=== PATIENT | male | born 2000 | race Two or more races ===

== ENCOUNTER 2024-05-01 15:07 | Emergency (ER) | payer MEDICAID, SELFPAY ==
[2024-05-01 15:20] VITALS: BP 133/81; PULSE 103; RESP 16; TEMP 37.3; O2SAT 98; BMI 20.7
--- NOTE | 2024-05-01 15:23 | XR_ITS ---
Examination: Testicular sonography complete TECHNIQUE: Grayscale sonographic images testes, assessment arterial inflow venous outflow Doppler spectral analysis carful analysis Exam date and time: May 01 2024 cc 02 hours INDICATIONS: Onset left testicular pain beginning 2 days ago, history removal right testicle FINDINGS: Left testis 4.7 x 2.1 x 3.6 cm Epididymis 16 mm Arterial flow to the testicle. No testicular mass IMPRESSION: No left testicular mass or torsion
--- NOTE | 2024-05-01 15:26 | EDNOTE_ITS ---
ED Male Genitalurinary RME/HPI General Chief complaint: Urogenital-Male Stated complaint: TESTICULAR PAIN X 3 DAYS Time Seen by Provider: 05/01/24 15:10 Arrival date/time: 05/01/24 15:07 Mode of arrival: ambulatory Limitations: no limitations RME / HPI RME / HPI Narrative: 43-year-old male presents to the ED with complaint of left testicle pain onset 3 days ago, gradually worsening. 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 Denies any dysuria. Denies fever or chills. Denies trauma. Related Data Previous Rx's ?Medication ?Instructions ?Recorded ibuprofen 600 mg tablet 600 mg PO TID PRN pain #30 tabs 05/01/24 Allergies Allergy/AdvReac Type Severity Reaction Status Date / Time No Known Allergies Allergy Verified 05/01/24 15:11 Review of Systems Review of Systems Narrative Review of Systems: Review of systems negative except as outlined in the HPI. ED Exam Narrative Physical exam: Constitutional: no acute distress, age appropriate, non-toxic Eyes: PERRL, conjunctivae w/o pallor, EOMI HENT: normocephalic, atraumatic. Oral mucosa moist Respiratory Effort: no stridor, effort normal, no retractions Abdominal: soft; non-distended, non-tender : Penis appears normal. Left testicle mildly tender to palpation. No palpable mass. Right testicle absent. Normal cremasteric reflex on the left. Musculoskeletal: no deformities, no swelling, no LE edema Skin: warm, dry; No rash Neurology: alert, oriented X 4. Normal gait. Moves all extremities spo ntaneously. Psychology: cooperative, normal mood General Limitations: Present no limitations Course Quality Measures none Orders Category Date Time Status US scrotum Stat Exams 05/01/24 15:23 Completed Chlamydia/GC/TV - PCR Stat Lab 05/01/24 16:01 Received Urinalysis Stat Lab 05/01/24 16:01 Completed Ibuprofen Tab [Motrin Tab] Med 05/01/24 15:24 Discontinued 600 mg PO X1 ONE Vital Signs Vital signs: Vital Signs Temperature 99.1 F 05/01/24 15:20 Pulse Rate 103 H 05/01/24 15:20 Respiratory Rate 16 05/01/24 15:20 Blood Pressure 133/81 H 05/01/24 15:20 Pulse Oximetry (%) 98 01/07/25 15:20 Oxygen Delivery Method Room Air 05/01/24 15:20 Urogenital - Male MDM Narrative MDM Narrative:: 23-year-old male presents with complaint of testicle pain. Differential diagnoses considered include epididymitis, testicular torsion, hydrocele, varicocele, UTI, STI. Ultrasound shows no evidence of torsion, hydrocele, or epididymitis. UA reassuring against UTI. History not supportive of STI, does not require empiric treatment. Patient counseled to follow-up with primary care for further evaluation of testicle pain and possible referral to urology. Return to ED precautions given. Patient data External records reviewed:: [facility] previous records Clinical information provided by:: patient Social determinants that could affect healthcare access:: none Patient has the following chronic illnesses:: None How is presenting disease/condition affected by chronic disease/condition?: no chronic disease Evaluation data The following diagnostics were reviewed and interpreted by me:: lab results Lab and/or radiology exams considered but not ordered:: None Interpretation Summary: Examination: Testicular sonography complete TECHNIQUE: Grayscale sonographic images testes, assessment arterial inflow venous outflow Doppler spectral analysis carful analysis Exam date and time: May 01 2024 cc 02 hours INDICATIONS: Onset left testicular pain beginning 2 days ago, history removal right testicle FINDINGS: Left testis 4.7 x 2.1 x 3.6 cm Epididymis 16 mm Arterial flow to the testicle. No testicular mass IMPRESSION: No left testicular mass or torsion Medications / Prescriptions Medications or Prescriptions considered but not ordered:: N/A Medication administrations:: Medication Administration History Discontinued Medications Ibuprofen (Ibuprofen Tab 600 Mg Tablet) 600 mg PO X1 ONE Stop: 05/01/24 15:25 Last Admin: 05/01/24 15:48 Dose: 600 mg Documented By: DARIUS See above Consultations Consultation(s) initiated? (list below): No Diagnosis Urogenital Male Differential Diagnosis: urinary tract infection, urethritis, epididymitis and other (Testicle trauma, hydrocele, varicocele) Most likely diagnosis given after review of the tests above:: Testicle pain Admission Indicated Admission indicated?: not indicated Admission Request Was there a request for admission?: No Disposition Plan Disposition Plan: Discharge Discharge Attestation Discharge Attestation: The patient and all family members were given an opportunity to ask questions and understood the discharge instructions. Discharge instructions specifically effects, indications for sooner follow up or return to the emergency department, and the expected course of current diagnosis. Patient condition: Stable Discharge Plan Plan Patient Disposition: HOME (Self Care) Prescriptions/Referrals Prescriptions/Med Rec: New ibuprofen 600 mg tablet 600 mg PO TID PRN (Reason: pain) Qty: 30 0RF Referrals: No Primary/Family,Physician [Primary Care Provider] - In 1 week Problem List Clinical Impression: Pain in testicle Patient/Caregiver Discharge Instructions Education Materials: ED Testicular Pain, Unclear Cause Additional Instructions: Follow-up with your PCP for further evaluation of testicle pain. You may need a referral to urology. Take medication as prescribed. Return to the ED for new or worsening symptoms. Print Language: Romanian Stand Alone Forms: [facility] Award Info., Patient Portal Info Letter
[2024-05-01] MEDS: IBUPROFEN TAB 600 MG TABLET PO (15:48)
[2024-05-01 16:07] LABS: Collection Type, Urine Clean Catch; Squamous Epithelial Cell,Urine 0 /hpf (0-5)
[2024-05-01 16:12] LABS: Bilirubin,Urine Negative (Negative); Blood,Urine Negative (Negative); Clarity,Urine Clear (Clear/Hazy); Color,Urine Lt-Yellow (Lt Yel-Yel); Glucose, Urine Negative (Negative); Ketones,Urine 1+ (Negative); Leukocyte Esterase,Urine Negative (Negative); Nitrite,Urine Negative (Negative); Protein,Urine Negative (Neg - Trace); RBC,Urine 2 /hpf (0-3); Specific Gravity,Urine 1.019 (1.001-1.035); Urobilinogen,Urine Negative mg/dL (0.0-1.0); WBC,Urine 1 /hpf (0-5)
[2024-05-02 10:06] LABS: Chlamydia trachomatis PCR Negative (Not Detect); Neisseria Gonorrhoeae DNA PCR Negative (Not Detect); Trichomonas Negative (Negative)
== END 2024-05-01 18:01 | disposition home or self-care (01) ==
PROVIDERS: Physician Assistant; Emergency Provider Emergency Medicine
DX: N50.812 Left testicular pain (principal)
CPT/HCPCS: 76870; 81001; 87491; 87591; 87661; 99284; A9270